=== PATIENT | male | born 1950 | race Hispanic/Latino ===

== ENCOUNTER 2022-08-14 20:06 | Emergency (ER) | payer OTHER | END 2022-08-14 20:11 | disposition home or self-care (01) | LOC: EDH 20:06 | DX: R06.02 Shortness of breath (principal); Z53.21 Procedure and treatment not carried out due to patient leaving prior to being seen by health care provider ==

== ENCOUNTER 2022-09-05 11:08 | Day surgery (SDC) | payer MEDICARE ==
[2022-09-04 14:16] VITALS: BP 186/91
[2022-09-04 14:23] LABS: HEMATOCRIT 40.4 % (42-54); MEAN CORPUSCULAR HEMOGLOBIN 33.1 pg (27.0-33.0); MEAN CORPUSCULAR HGB CONC 33.4 g/dL (32.0-36.0); RED BLOOD CELL COUNT(AUTO) 4.08 MIL/uL (4.50-6.20); RED CELL DISTRIBUTION WIDTH 15.3 % (11.0-15.5); WHITE BLOOD COUNT (AUTO) 6.8 K/uL (4.8-10.8)
[2022-09-04 15:05] LABS: INR 1.06 (0.85-1.15); PROTHROMBIN TIME 11.5 SEC (9.6-11.6)
[2022-09-04 15:06] LABS: PARTIAL THROMBOPLASTIN TIME 33.6 SEC (26.3-35.5)
[2022-09-04 15:39] LABS: CREATININE 4.2 mg/dL (0.5-1.5); POTASSIUM 4.2 mmol/L (3.5-5.1)
[2022-09-05] VITALS (16 sets, daily range): BP systolic 144–230; BP diastolic 78–112
[~2022-09-05] VITALS: Ht 165.1 cm; Wt 50.8 kg
[~2022-09-05 11:08] MED LIST: 0.9% NACL 500ML IV.SOLN 500 ML IV ONE; ACET-2247 PO; AMLO-257 PO; ATOR40TA69 PO; BISA-151 PO; CALC667T8 PO; CEFAZOLIN SODIUM 2 GM VIAL ONE; CYAN1000I IM; DOCU100C33 PO; FERS325 PO; FOLI1TAB85 PO; INSU100I26 SQ; LACT10SO95 PO; LEVE500T98 PO; LEVO50CA4 PO; LISI5TAB21 PO; LOPE-198 PO; METO25TA6 PO; MULT-1367 PO; PANT40TA54 PO; THIA100T78 PO
[2022-09-05 11:39] LABS: CREATININE 5.6 mg/dL (0.5-1.5); POTASSIUM 4.6 mmol/L (3.5-5.1)
[2022-09-05] MEDS ORDERED: ROPIVACAINE 0.5% 5MG/ML 30ML IJ ONE (12:25)
[2022-09-05] MEDS ORDERED: LIDOCAINE 1%-EPI 1:100,000 20 ML VIAL IJ ONE (12:25)
[2022-09-05] MEDS ORDERED: PROPOFOL 10 MG/ML 20ML VIAL IV ONE (14:18)
[2022-09-05] MEDS ORDERED: FENTANYL CITRATE PF 50 MCG/1 ML 2ML VIAL ONE ×2 (14:18→14:42)
[2022-09-05] MEDS ORDERED: MIDAZOLAM HCL 1 MG/ML 2ML VIAL ONE (14:18)
[2022-09-05] MEDS ORDERED: ROCURONIUM 10MG/1ML SYR 10 MG/ML ML ONE (14:18)
[2022-09-05] MEDS ORDERED: CEFAZOLIN SODIUM 2 GM VIAL IVPB ONE (14:59)
[2022-09-05] MEDS ORDERED: EPHEDRINE SULFATE 50 MG/ML AMPULE ONE (15:24)
[2022-09-05] MEDS ORDERED: ONDANSETRON 4MG INJ ONE (15:45)
[2022-09-05] MEDS ORDERED: LABETALOL 20MG VIAL IV ONE (16:08)
[2022-09-05] MEDS ORDERED: CLONIDINE HCL 0.2 MG TABLET PO ONE (16:25)
== END 2022-09-05 17:34 | disposition home or self-care (01) ==
LOC: DAH 11:08
PROVIDERS: ATTEND Thoracic Surgery (Cardiothoracic Vascular Surgery)
DX: E11.22 Type 2 diabetes mellitus with diabetic chronic kidney disease (principal); I12.0 Hypertensive chronic kidney disease with stage 5 chronic kidney disease or end stage renal disease; Z20.822 Contact with and (suspected) exposure to COVID-19; N18.6 End stage renal disease; E03.9 Hypothyroidism, unspecified; E78.5 Hyperlipidemia, unspecified; F41.9 Anxiety disorder, unspecified; F32.A Depression, unspecified; Z99.2 Dependence on renal dialysis; Z79.890 Hormone replacement therapy; Z79.899 Other long term (current) drug therapy
CPT/HCPCS: 80048 ×2; 85027; 85610; 85730; 86850; 86900; 86901; 87426; 36415 ×2; 71045; 93005; 36821; 82948 ×2; 64417; J7040 ×2; J7030; J3010 ×2; J3490 ×3; J2250; J2704; J2405; J1644; J2795; J0690 ×2; A6219; A4649 ×5; C1713 ×2; A4930